=== PATIENT | female | born 1950 | race Caucasian/White ===

== ENCOUNTER → 2018-12-31 | Outpatient (CLI) | payer MEDICARE | LOC: CARD 15:33 | PROVIDERS: ATTEND Nurse Practitioner Family | DX: R00.1 Bradycardia, unspecified (principal) | CPT/HCPCS: 93005 ==

== ENCOUNTER → 2019-01-13 | Outpatient (CLI) | payer MEDICARE ==
[2019-01-13 16:04] VITALS: BP 125/84
--- NOTE | 2019-01-13 16:04 | Cardiology Stress Test Report ---
Stress Test Report Date of Procedure/Referring: Date of Procedure: Jan 13, 2019 PCP Nancy Thorpe MD Admitting Physician Caprice Meadows MD Indications: Arrhythmia Baseline Heart Rate: 58 Baseline Blood Pressure: Blood Pressure Systolic: 125 Blood Pressure Diastolic: 84 Baseline EKG: Baseline EKG: sinus rhythm with frequent PVCs and ventricular bigeminy Summary/Conclusion: Summary: In summary, the patient started exercising with a baseline heart rate, blood pressure and EKG mentioned above Patient was able to exercise for a total of 9 minutes on Andi protocol, 10.5 METs Maximum heart rate 141 Maximum blood pressure 217/85 Stress EKG persistent frequent PVCs, ventricular bigeminy, nondiagnostic ST changes Recovery EKG Return to baseline Conclusion: 1. Good exercise tolerance for a total of 9 minutes on Andi protocol, 10.5 METs, achieving 92 percent of maximum expected heart rate 2. Baseline EKG with sinus rhythm with frequent PVCs and ventricular bigeminy persisted through followed stress test and during recovery with no acute ST-T changes 3. Severe hypertensive response to exercise with maximum blood pressure 217/85 NANCY THORPE MD Jan 13, 2019 4:04 pm
== END ==
LOC: CARD 07:14
PROVIDERS: ATTEND Internal Medicine Cardiovascular Disease
DX: R00.1 Bradycardia, unspecified (principal); I10 Essential (primary) hypertension; E03.9 Hypothyroidism, unspecified; I08.1 Rheumatic disorders of both mitral and tricuspid valves
CPT/HCPCS: 93017; 93306

== ENCOUNTER → 2019-03-24 | Outpatient (CLI) | payer MEDICARE ==
--- NOTE | 2019-03-26 20:18 | Diagnostic Imaging Report ---
Digital mammogram bilateral screening with 3 D tomosynthesis and CAD. The current study was also evaluated with a Computer Aided Detection (CAD) system. 3-D tomosynthesis was also performed and reviewed. The study was compared to the prior exam of 03/18/2018, 01/24/2017 and 12/22/2014. At this time, there are no current complaints. The current study was also evaluated with a Computer Aided Detection (CAD) system. FINDINGS: The fibroglandular tissue in both breasts is heterogeneously dense. This does limit the sensitivity of this exam. Overall, there does not appear to have been any significant change when compared to the prior study. No primary or secondary sign of malignancy is noted. IMPRESSION: There is no radiographic evidence for malignancy. ACR BI-RADS Category 1: Negative. Result letter will be mailed to the patient. Note: At least 10% of breast cancer is not imaged by mammography. Dictated on workstation # [id number]
== END ==
LOC: RAD 11:09
PROVIDERS: ATTEND Nurse Practitioner Family
DX: Z12.31 Encounter for screening mammogram for malignant neoplasm of breast (principal)
CPT/HCPCS: 77067

== ENCOUNTER → 2020-07-07 | Outpatient (CLI) | payer MEDICARE ==
--- NOTE | 2020-07-07 12:42 | Diagnostic Imaging Report ---
Indication: Routine screening. Comparison is made with prior mammogram from 03/24/2019 and 03/18/2018. 2-D and 3-D bilateral screening mammography was performed with CAD. Both breasts are heterogeneously dense, limiting the sensitivity of mammography. There are scattered benign calcifications in both breasts. No mass or malignant appearing microcalcifications are seen. Axillae are unremarkable. IMPRESSION: BI-RADS Category 2 No mammographic features suspicious for malignancy are identified. ACR BI-RADS Category 2: Benign findings. Result letter will be mailed to the patient. Note: At least 10% of breast cancer is not imaged by mammography. Dictated by: Dictated on workstation # [id number]
== END ==
LOC: RAD 10:58
PROVIDERS: ATTEND Nurse Practitioner Family
DX: Z12.31 Encounter for screening mammogram for malignant neoplasm of breast (principal)
CPT/HCPCS: 77063; 77067

== ENCOUNTER → 2021-07-10 | Outpatient (CLI) | payer MEDICARE ==
--- NOTE | 2021-07-10 11:02 | Diagnostic Imaging Report ---
INDICATION: Postmenopausal screening COMPARISON: 01/25/2010 FINDINGS: AP Spine L1-L4: [BMD (g/cm2): 1.029] [T-Score: -1.4] [Z-Score: 0.3] [BMD Previous: 1.015] [BMD % Change: 1.4] LT Hip Neck: [BMD (g/cm2): 0.786] [T-Score: -1.8] [Z-Score: -0.1] LT Hip Total: [BMD (g/cm2):0.792] [T-Score:-1.7] [Z-Score: -0.2] [BMD Previous: 0.966] [BMD % Change: -18.0] RT Hip Neck: [BMD (g/cm2):0.759] [T-Score:-2.0] [Z-Score:-0.3] RT Hip Total: [BMD (g/cm2):0.781] [T-score:-1.8] [Z-Score:-0.3] [BMD Previous:0.929] [BMD % Change:-15.9] *Indicates significant change from prior examination based on 95% confidence level. World Health Organization criteria for BMD interpretation classify patients as Normal (T-score at or above -1.0), Osteopenic (T-score between -1.0 and -2.5) or Osteoporotic (T-score at or below -2.5). LIMITATIONS AND MODIFICATION: None. FRACTURE RISK (FRAX SCORE): The ten year probability of (%): Major Osteoporotic Fracture: [11.0] Hip Fracture: [2.3] IMPRESSION: 1. Osteopenia (Low bone mass). 2. No significant change in bone mineral density since prior examination. 3. See below National Osteoporosis Foundation guidelines on when to potentially initiate pharmacologic therapy. Based on the National Osteoporosis Foundation Guidelines, pharmacologic treatment should be initiated in any of the following, unless clinical conditions suggest otherwise: * Any patient with prior fragility fracture of the hip or vertebrae. A spine fracture indicates 5X risk for subsequent spine fracture and 2X risk for subsequent hip fracture. * Osteoporosis (T-score <-2.5). * Postmenopausal women and men age 50 and older with low bone mass/osteopenia (T-score between -1.0 and -2.5) by DXA and 10-year major osteoporotic fracture greater than 20% or a 10-year probability of hip fracture greater than 3%. These fracture risks are supplied above in the FRAX score, if applicable. * Clinician judgement and/or patient preferences may indicate treatment for people with 10-year fracture probabilities above or below these levels. Dictated by: Dictated on workstation # [id number]
--- NOTE | 2021-07-10 12:10 | Diagnostic Imaging Report ---
INDICATION: Routine screening. COMPARISON: 07/07/2020 and 03/24/2019. TECHNIQUE: 2D and 3D bilateral screening mammography was performed with CAD. FINDINGS: Both breasts are heterogeneously dense, limiting the sensitivity of mammography. Occasional benign calcifications are noted in both breasts. No mass or malignant-appearing microcalcifications are seen. The axillae are unremarkable. IMPRESSION: No mammographic features suspicious for malignancy are identified. ACR BI-RADS Category 2: Benign findings. Result letter will be mailed to the patient. Note: At least 10% of breast cancer is not imaged by mammography. Dictated by: Dictated on workstation # [id number]
== END ==
LOC: RAD 10:30
PROVIDERS: ATTEND Nurse Practitioner Family
DX: Z12.31 Encounter for screening mammogram for malignant neoplasm of breast (principal); M85.80 Other specified disorders of bone density and structure, unspecified site; Z78.0 Asymptomatic menopausal state
CPT/HCPCS: 77063; 77067; 77080

== ENCOUNTER → 2022-07-12 | Outpatient (CLI) | payer MEDICARE ==
--- NOTE | 2022-07-12 10:59 | Diagnostic Imaging Report ---
Indication: Routine screening. Comparison is made prior mammograms 07/10/2021 and 07/07/2020. 2-D and 3-D bilateral screening mammography was performed with CAD. Both breasts are heterogeneously dense, limiting the sensitivity of mammography. There are scattered benign calcifications. No mass or malignant-appearing microcalcifications are seen. Axillae are unremarkable. IMPRESSION: BI-RADS Category 2 No mammographic features suspicious for malignancy are identified. ACR BI-RADS Category 2: Benign findings. Result letter will be mailed to the patient. Note: At least 10% of breast cancer is not imaged by mammography. Dictated by: Dictated on workstation # [id number]
== END ==
LOC: RAD 09:25
PROVIDERS: ATTEND Nurse Practitioner Family
DX: Z12.31 Encounter for screening mammogram for malignant neoplasm of breast (principal)
CPT/HCPCS: 77063; 77067

== ENCOUNTER → 2022-09-17 | Outpatient (CLI) | payer MEDICARE ==
[~2022-09-17] VITALS: Ht 170 cm; Wt 63.0 kg
[~2022-09-17] MED LIST: AMIO200T65 PO; CALC1TAB PO; CATHETER FLUSH 10 ML SYR IVP PRN; CLON0.5T4 PO; CYCL10TA25 PO; D-MA500C PO; DOXY50CA2 PO; EPIN0.3P18 IJ; FISH12002 PO; LEVO75CA5 PO; LYSI100014 PO; MULT-141 PO; NEBI5TAB8 PO; REGADENOSON 0.4 MG/5 ML SYR (LEXISCAN) IV ONE; RIVA20TA PO
[2022-09-17 07:57] VITALS: BP 136/83
--- NOTE | 2022-09-17 12:03 | Cardiology Stress Test Report ---
Stress Test Report Date of Procedure/Referring: Date of Procedure: Sep 17, 2022 PCP Marely Meadows MD Admitting Physician Admitting Physician: Attending Physician: Francoise Serna Indications: V Tach Baseline Heart Rate: 84 Baseline Blood Pressure: Blood Pressure Systolic: 136 Blood Pressure Diastolic: 83 Baseline Vitals Vital Signs Date Time Temp Pulse Resp B/P (MAP) Pulse Ox O2 Delivery O2 Flow Rate FiO2 09/17/22 07:57 84 136/83 (100) Baseline EKG: Baseline EKG: NSR Summary After explaining the procedure to the patient, she signed a consent and then brought to the stress nuclear laboratory. Patient received 0.4 mg Lexiscan for stress test, ECG, heart rate and blood pressure were monitored continuously. Resting and stress dose of radio tracer were injected, imaging was acquired and reviewed in short axis, horizontal long axis and vertical long axis views. TID: 1.12 SSS: 1 SDS: 1 Patient tolerated Lexiscan well Baseline sinus rhythm with ventricular trigeminy persisted during test No significant ischemia or infarction noted on SPECT images No gated images in the study Copy Copies To 1: MARELY MEADOWS MD, BASHAR J MD Sep 17, 2022 12:03
== END ==
LOC: CARD 06:32
PROVIDERS: ATTEND Physician Assistant
DX: I47.20 Ventricular tachycardia, unspecified (principal)
CPT/HCPCS: 78452; A9502

== ENCOUNTER 2022-09-18 08:02 | Day surgery (SDC) | payer MEDICARE ==
[~2022-09-18] VITALS: Ht 170 cm; Wt 68.5 kg
[2022-09-18] VITALS (10 sets, daily range): BP systolic 97–120; BP diastolic 52–81
[2022-09-18] MEDS ORDERED: NS IV 1000 ML 1,000 ML IV ONE (08:30)
[2022-09-18] MEDS ORDERED: LIDOCAINE 2% VISCOUS 15 ML UDC ONE (08:30)
[2022-09-18] MEDS ORDERED: NS IV 1000 ML 1,000 ML ONE (08:30)
[2022-09-18] MEDS ORDERED: MULT-141 PO (09:14)
[2022-09-18] MEDS ORDERED: RIVA20TA PO (09:14)
[2022-09-18] MEDS ORDERED: LYSI100014 PO (09:14)
[2022-09-18] MEDS ORDERED: DOXY50CA2 PO (09:14)
[2022-09-18] MEDS ORDERED: CALC1TAB PO (09:14)
[2022-09-18] MEDS ORDERED: LEVO75CA5 PO (09:14)
[2022-09-18] MEDS ORDERED: D-MA500C PO (09:14)
[2022-09-18] MEDS ORDERED: CYCL10TA25 PO (09:14)
[2022-09-18] MEDS ORDERED: CLON0.5T4 PO (09:14)
[2022-09-18] MEDS ORDERED: FISH12002 PO (09:14)
[2022-09-18] MEDS ORDERED: EPIN0.3P18 IJ (09:14)
[2022-09-18] MEDS ORDERED: NEBI5TAB8 PO (09:14)
[2022-09-18] MEDS ORDERED: proPOfol 200 MG/20 ML (DIPRIVAN) VIAL IV ONE (09:37)
[2022-09-18] MEDS ORDERED: AMIODARONE FOR BOLUS 150 MG in NS (IVPB) 100 ML IV NR (10:00)
[2022-09-18] MEDS ORDERED: AMIODARONE INJECTION 450 MG in NORMAL SALINE 250 ML IV SCH (10:00)
--- NOTE | 2022-09-18 10:16 | Cardiac Procedure Note-CS/ASA ---
Pre-Procedure Note Pre-Op Procedure Note Date of Available H&P: Sep 12, 2022 Date H&P Reviewed: Sep 18, 2022 Time H&P Reviewed: 10:00 History & Physical: H&P Reviewed, Patient Examed, No changes noted Pre-Operative Diagnosis: a fib Conscious Sedation Pre-Proced Time 10:00 ASA Score 3 For ASA 3 and 4: Consider anesthesia and medical clearance. Also, for patients with a history of failed moderate sedation consider anesthesia. Airway Lungs Heart ASA score ASA 1: a normal healthy patient ASA 2: a patient with a mild systemic disease (mid diabetes, controlled hypertension, obesity ASA 3: a patient with a severe systemic disease that limits activity (angina, COPD, prior Myocardial infarction) ASA 4: a patient with an incapacitating disease that is a constant threat to life (CHF, renal failure) ASA 5: a moribund patient not expected to survive 24 hrs. (ruptured aneurysm) ASA 6: a declared brain- patient whose organs are being harvested. For emergent operations, add the letter E after the classification Mallampati Classification Grade 3 Sedation Plan Analgesia, Amnesia, Plan communicated to team members, Discussed options with patient/fam, Discussed risks with patient/fam The patient is an appropriate candidate to undergo the planned procedure, sedation, and anesthesia. The patient immediately re-assessed prior to indication. NANCY STONE MD Sep 18, 2022 10:16
--- NOTE | 2022-09-18 10:17 | Cardioversion ---
Cardioversion PROCEDURE PHYSICIAN: Nancy Thorpe DATE OF PROCEDURE: 09/18/22 DIRECT EXTERNAL ELECTRICAL CARDIOVERSION: Indications: Atrial Fibrillation with rapid ventricular rate Preoperative diagnoses: Atrial Fibrillation with rapid ventricular rate Postoperative diagnosis: Sinus rhythm, Successful Electrical Cardioversion Anesthesia: By Anesthesia services Complications: None Specimen: None Contrast: 0 Flouroscopy: none Procedure Details: 72-year-old lady with paroxysmal atrial fibrillation, frequent PVCs. Has been maintained on Bystolic. Scheduled for SRIRAM and electrical cardioversion and then starting amiodarone loading dose and a bolus The patient was brought the petroleum refinery laborer after informed consent was taken, all the risks and complications were explained including the risk of stroke. Electrical cardioversion was carried out with anesthesia support with propofol. 120 joules of synchronized shock was delivered through external patches which promptly restored sinus rhythm. The patient tolerated the procedure well. Conclusions: Successful electrical cardioversion terminating atrial fibrillation Final Diagnosis: Paroxysmal atrial fibrillation Frequent PVCs, ventricular trigeminy Nonsustained ventricular tachycardia Chest pain NANCY THORPE MD Sep 18, 2022 10:17
[2022-09-18] MEDS ORDERED: AMIO200T65 PO (10:22)
--- NOTE | 2022-09-18 10:22 | Discharge Inst-Post CATH ---
Discharge Inst-CATH/EP Problems Reviewed?: Yes Post Cardiac Cath/EP D/C Inst Follow Up/Plan Appointment with Dr. Thorpe's office in tomorrow <b>CARDIAC CATH/EP PROCEDURE DISCHARGE INSTRUCTIONS</b> ACTIVITY * Go Home directly and rest. * Limit activity of the leg (or wrist if it was used) for 7 days including aerobics, swimming, jogging, bicycling, etc. * Restrict stair-climbing for 7 days if possible, if not, climb up with your non-cath leg, then bring together on the same step. * Avoid lifting, pushing, pulling or excessive movement of the affected extremity for 7 days. * Customary sexual activity may be resumed after 2 days-use caution not to use a position that strains or causes pain to the affected extremity. * No driving for 24 hours. * NO SMOKING. * Avoid straining for bowel movements for 7 days. * Gentle walking on level ground is allowed. * Returning to work will depend on the type of procedure and the results. Your doctor will discuss this with you. CALL YOUR DOCTOR FOR ANY OF THE FOLLOWING: *If bleeding from the puncture site occurs- Apply gentle pressure to site with clean cloth and call your doctor or EMS. * If a knot or lump forms under the skin, increases in size, or causes pain. * If bruising appears to be worsening or moving further down your leg instead of disappearing. * Temperature above 101 F. CARE OF YOUR GROIN INCISION; * Bruising or purple discoloration of the skin near the puncture site is common. * You may shower only, no bathtub bathing for 5 days. Be careful to avoid slipping as your leg may feel stiff. * If a closure device was used on your femoral artery, please see the attached guide regarding care of the device and your leg. * Leave dressing on FOR 24 hours. CARE OF YOUR WRIST INCISION; * Bruising or purple discoloration of the skin near the puncture site is common. * You may shower. * DO NOT submerge wrist. * Leave dressing on FOR 24 hours. NANCY THORPE MD Sep 18, 2022 10:22
--- NOTE | 2022-09-18 10:25 | Anesthesia-General Post-Op ---
MAC Patient Condition Mental Status/LOC: Same as Preop Cardiovascular: Satisfactory Nausea/Vomiting: Absent Respiratory: Satisfactory Pain: Controlled Complications: Absent Post Op Complications Complications None Follow Up Care/Instructions Patient Instructions None needed. Anesthesiology Discharge Order Discharge Order Patient is doing well, no complaints, stable vital signs, no apparent adverse anesthesia problems. No complications reported per nursing. ANA CONTRERAS CRNA Sep 18, 2022 10:25
[2022-09-19] MEDS ORDERED: LEVOTHYROXINE 75 MCG (LEVOTHROID) TABLET PO SCH (06:30)
[2022-09-19] MEDS ORDERED: NON-FORMULARY MEDICATION 1 EA EA (Levothyroxine Sodium (Levothyroxine) 75 MCG) PO SCH (09:00)
[2022-09-19] MEDS ORDERED: RIVAROXABAN 20 MG TABLET (XARELTO) PO SCH (09:00)
[2022-09-22] MEDS ORDERED: LEVOTHYROXINE 75 MCG (LEVOTHROID) TABLET PO SCH (06:30)
== END 2022-09-18 16:58 | disposition home or self-care (01) ==
LOC: CATH 08:02 → CSD 11:03 → CATH 16:58
PROVIDERS: ATTEND Internal Medicine Cardiovascular Disease
DX: I48.0 Paroxysmal atrial fibrillation (principal); I49.3 Ventricular premature depolarization; R00.8 Other abnormalities of heart beat; I47.20 Ventricular tachycardia, unspecified; R07.9 Chest pain, unspecified; Z79.01 Long term (current) use of anticoagulants; I08.1 Rheumatic disorders of both mitral and tricuspid valves; I65.23 Occlusion and stenosis of bilateral carotid arteries; Z79.899 Other long term (current) drug therapy
CPT/HCPCS: 36415; 84443; 87081; 92960; 93005; 93312

== ENCOUNTER → 2022-10-25 | Outpatient (CLI) | payer MEDICARE ==
[~2022-10-25] MED LIST changes: -CATHETER FLUSH 10 ML SYR IVP PRN; -REGADENOSON 0.4 MG/5 ML SYR (LEXISCAN) IV ONE
== END ==
LOC: CARD 12:00
PROVIDERS: ATTEND Internal Medicine Cardiovascular Disease
DX: I10 Essential (primary) hypertension (principal)
CPT/HCPCS: 93306

== ENCOUNTER → 2023-01-13 | Outpatient (CLI) | payer MEDICARE ==
[~2023-01-13] MED LIST changes: +CATHETER FLUSH 10 ML SYR IV PRN; +HOLD METFORMIN - RECEIVED CONTRAST 20 ML VIAL IV SCH; +IOHEXOL 350 MG/ML 100 ML (OMNIPAQUE 350) VIAL IV ONE; +NS 100 ML (IVPB) BAG IV ONE
--- NOTE | 2023-01-13 14:47 | Diagnostic Imaging Report ---
INDICATION: Hypertension and atrial fibrillation, pre-ablation study. CTA cardiac structure study performed with precontrast study followed by post-IV contrast images with EKG gating and 3-D reconstructions. Dose reduction protocol was used. Precontrast images show some mild coronary calcifications in the LV territory. There is some parenchymal scarring in the left lung base. There is no pleural or pericardial fluid. There is a trace of fluid in the superior pericardial recess. There are no overt filling defects in the cardiac chambers. The right coronary artery is fairly small. Is a dominant left coronary artery. The left main coronary artery is patent and without stenosis. LAD is patent with minimal plaquing, without significant stenosis. There are prominent ramus intermedius branches. The circumflex coronary artery is patent and without stenosis and supplies the posterior descending branch. IMPRESSION: There is a left dominant coronary system. There is no significant coronary artery stenosis. 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 There is cardiomegaly with no overt intracardiac filling defects. Pulmonary venous branching patterns are unremarkable. Dictated by: Dictated on workstation # [id number]
== END ==
LOC: RAD 09:27
PROVIDERS: ATTEND Internal Medicine Cardiovascular Disease
DX: I11.9 Hypertensive heart disease without heart failure (principal); I48.91 Unspecified atrial fibrillation; E78.5 Hyperlipidemia, unspecified
CPT/HCPCS: 75572

== ENCOUNTER → 2023-02-10 | Outpatient (CLI) | payer MEDICARE ==
[~2023-02-10] MED LIST changes: -CATHETER FLUSH 10 ML SYR IV PRN; -HOLD METFORMIN - RECEIVED CONTRAST 20 ML VIAL IV SCH; -IOHEXOL 350 MG/ML 100 ML (OMNIPAQUE 350) VIAL IV ONE; -NS 100 ML (IVPB) BAG IV ONE
[2023-02-10 12:56] LABS: HEMATOCRIT 42 % (35-52); HEMOGLOBIN 13.8 g/dL (11.5-16.0); MEAN CORPUSCULAR HEMOGLOBIN 32 pg (25-34); MEAN CORPUSCULAR HGB CONC 33 g/dL (32-36); MEAN CORPUSCULAR VOLUME 97 fL (80-99); PLATELET COUNT 261 10^3/uL (130-400); WHITE BLOOD COUNT 6.9 10^3/uL (4.3-11.0)
[2023-02-10 13:17] LABS: CALCIUM 11.2 MG/DL (8.5-10.1); CREATININE SERUM 0.99 MG/DL (0.60-1.30); MAGNESIUM 2.4 MG/DL (1.6-2.4); POTASSIUM 5.8 MMOL/L (3.6-5.0)
== END ==
LOC: LAB 12:38
PROVIDERS: ATTEND Internal Medicine Cardiovascular Disease
DX: I48.91 Unspecified atrial fibrillation (principal); I10 Essential (primary) hypertension; E78.5 Hyperlipidemia, unspecified
CPT/HCPCS: 36415; 80048; 83735; 85027